=== PATIENT | female | born 1955 | race Two or more races ===

== ENCOUNTER → 2018-07-07 | Outpatient (CLI) | payer MEDICAID | END | disposition home or self-care (01) | LOC: Rad HDHVI 07:57 | PROVIDERS: ATTEND Internal Medicine | DX: I07.1 Rheumatic tricuspid insufficiency (principal); I10 Essential (primary) hypertension; E11.9 Type 2 diabetes mellitus without complications | CPT/HCPCS: 93306 ==

== ENCOUNTER → 2018-07-09 | Outpatient (CLI) | payer MEDICAID ==
[~2018-07-09] MED LIST: ADENOSINE 75 MG in GIVE UN-DILUTED 0 ML IV ONE; ADENOSINE 90 MG/30 ML INJ IV ONE
== END | disposition home or self-care (01) ==
LOC: Rad HDHVI 07:52
PROVIDERS: ATTEND Internal Medicine Cardiovascular Disease
DX: I10 Essential (primary) hypertension (principal); E11.9 Type 2 diabetes mellitus without complications; K21.9 Gastro-esophageal reflux disease without esophagitis; F32.9 Major depressive disorder, single episode, unspecified; E78.5 Hyperlipidemia, unspecified; E55.9 Vitamin D deficiency, unspecified
CPT/HCPCS: 78452; 93005; 96374; 96375; A9500; J0153

== ENCOUNTER 2018-10-27 13:57 | Emergency (ER) | payer MEDICAID ==
[~2018-10-27] VITALS: Ht 154.9 cm; Wt 89.8 kg
[2018-10-27] MEDS ORDERED: ETOMIDATE (2MG/ML) 20ML VIAL IV ONE (15:15)
[2018-10-27 16:39] VITALS: BP 127/77
== END 2018-10-27 18:35 | disposition home or self-care (01) ==
LOC: ER 13:57
DX: S53.114A Anterior dislocation of right ulnohumeral joint, initial encounter (principal); I48.91 Unspecified atrial fibrillation; E11.9 Type 2 diabetes mellitus without complications; I10 Essential (primary) hypertension; E07.9 Disorder of thyroid, unspecified; W18.39XA Other fall on same level, initial encounter; Y93.89 Activity, other specified; Y99.8 Other external cause status; Y92.89 Other specified places as the place of occurrence of the external cause
CPT/HCPCS: 24600; 73070; 73080; 94761

== ENCOUNTER → 2020-02-29 | Outpatient (CLI) | payer MEDICAID ==
[~2020-02-29] MED LIST changes: -ADENOSINE 75 MG in GIVE UN-DILUTED 0 ML IV ONE; -ADENOSINE 90 MG/30 ML INJ IV ONE; +ASPI-492 PO; +CARV6.25 PO; +CHOL10009 PO; +DAPA1TAB4 PO; +DULA0.5I SC; +FENO134C PO; +FLUT50SP28; +GLIP5TAB12 PO; +HCTZ25T PO; +LEVO150T68 PO; +LOSA-39 PO; +PANT40TA2 PO; +SERT-274 PO; +SERT-377 PO
== END | disposition home or self-care (01) ==
LOC: Rad HDHVI 08:57
PROVIDERS: ATTEND Internal Medicine
DX: I07.1 Rheumatic tricuspid insufficiency (principal); I11.0 Hypertensive heart disease with heart failure; I50.9 Heart failure, unspecified; R07.9 Chest pain, unspecified
CPT/HCPCS: 93306

== ENCOUNTER → 2020-03-02 | Outpatient (CLI) | payer MEDICAID ==
[~2020-03-02] VITALS: Ht 157.5 cm; Wt 83.0 kg
[~2020-03-02] MED LIST changes: +ADENOSINE 70 MG in GIVE UN-DILUTED 0 ML IV ONE; +ADENOSINE 90 MG/30 ML INJ IV ONE; -ASPI-492 PO; -CARV6.25 PO; -CHOL10009 PO; -DAPA1TAB4 PO; -DULA0.5I SC; -FENO134C PO; -FLUT50SP28; -GLIP5TAB12 PO; -HCTZ25T PO; -LEVO150T68 PO; -LOSA-39 PO; -PANT40TA2 PO; -SERT-274 PO; -SERT-377 PO
== END | disposition home or self-care (01) ==
LOC: Rad HDHVI 09:27
PROVIDERS: ATTEND Internal Medicine
DX: E11.9 Type 2 diabetes mellitus without complications (principal); I10 Essential (primary) hypertension; E78.00 Pure hypercholesterolemia, unspecified
CPT/HCPCS: 78452; 93005; 96374; 96375; A9500; J0153

== ENCOUNTER → 2020-04-15 | Outpatient (CLI) | payer MEDICAID ==
[~2020-04-15] VITALS: Ht 157.5 cm; Wt 87.5 kg
[~2020-04-15] MED LIST changes: -ADENOSINE 70 MG in GIVE UN-DILUTED 0 ML IV ONE; -ADENOSINE 90 MG/30 ML INJ IV ONE; +ASPI-492 PO; +CARV6.25 PO; +CHOL10009 PO; +DAPA1TAB4 PO; +DULA0.5I SC; +FENO134C PO; +FLUT50SP28; +GLIP5TAB12 PO; +HCTZ25T PO; +LEVO150T68 PO; +LOSA-39 PO; +PANT40TA2 PO; +SERT-274 PO; +SERT-377 PO
[2020-04-15 11:15] VITALS: BP 128/70
--- NOTE | 2020-04-15 11:15 | NUR ---
CHF PT ARRIVED TO THE [facility] FOR PRE OP FOR C EKG, CXR, AND LABS PER MD ORDERS. A/O X4, AMBULATORY. MEÑO BILLINGS INTERPRETED PROCESS, PROCEDURES, AND DIRECTIONS. PT VERBALIZED UNDERSTANDING.
--- NOTE | 2020-04-15 11:19 | NUR ---
EKG PREFORMED BY GIORGIO MISHRA SR 79
[2020-04-15 11:35] VITALS: BP 130/80
--- NOTE | 2020-04-15 11:35 | NUR ---
Pre-Op Discharge Summary: See e-MAR for any medications given for this visit. Pre-op orders received and carried out per MD of EKG, LABS and chest xrays. Patient given a copy of EKG with instructions GIVE BY MEÑO BILLINGS (CARE MANAGEMENT SPECIALIST) to go to [facility] out patient for further follow up care. PT VERBALIZED UNDERSTANDING. NOTE EKG ADMIN BY GIORGIO MISHRA
[2020-04-15 12:07] LABS: Basophils # (auto) 0.1 10 ^3/uL (0-0.2); Basophils % (auto) 0.9 % (0.0-2.0); Eosinophils # (auto) 0.1 10 ^3/uL (0-0.8); Eosinophils % (auto) 1.6 % (0.0-7.0); Hemoglobin 13.7 g/dL (12.2-16.2); Lymphocytes # (auto) 2.2 10 ^3/uL (0.4-5.4); Lymphocytes % (auto) 39.4 % (10.0-50.0); Mean Corpuscular Hemoglobin 29.8 pg (28.0-32.0); Mean Corpuscular Hgb Conc. 33.4 g/dL (32.0-36.0); Monocytes # (auto) 0.3 10 ^3/uL (0-1.3); Monocytes % (auto) 4.7 % (0.0-12.0); Neutrophils % (auto) 53.4 % (37.0-80.0); Nucleated Red Blood Cells % 0.3 %; Platelet Count (auto) 221 10^3/uL (140-450); Red Blood Cells 4.61 10^6/uL (4.0-5.20); Red Cell Distribution Width 14.7 % (11.8-14.3); White Blood Cell 5.5 10^3/uL (4.4-10.8)
[2020-04-15 12:10] LABS: INR 1.07 (0.9-1.15); Partial Thromboplastin Time 26.6 sec (23.64-32.05)
[2020-04-15 12:11] LABS: BUN/Creatinine Ratio 19.3; Calcium 8.8 mg/dL (8.5-10.1); Potassium 3.7 mmol/L (3.5-5.1)
== END | disposition home or self-care (01) ==
LOC: Rad HDHVI 10:43
PROVIDERS: ATTEND Internal Medicine
DX: Z01.818 Encounter for other preprocedural examination (principal); R07.9 Chest pain, unspecified; I10 Essential (primary) hypertension; E11.9 Type 2 diabetes mellitus without complications; E03.9 Hypothyroidism, unspecified; M47.819 Spondylosis without myelopathy or radiculopathy, site unspecified
CPT/HCPCS: 36415; 71046; 80048; 85025; 85610; 85730; 93005; G0463

== ENCOUNTER 2020-04-20 06:57 | Day surgery (SDC) | payer MEDICAID ==
[~2020-04-20] VITALS: Ht 30.5 cm; Wt 0.5 kg
[2020-04-20] MEDS ORDERED: IODIXANOL 320MG/ML 100ML BTL IV ONE (07:14)
[2020-04-20] MEDS ORDERED: LIDOCAINE 2%HCL (LOCAL ANESTH.) INJ 20ML MDV ONE (07:14)
[2020-04-20] MEDS ORDERED: ANGIOMAX 250 MG VIAL IV ONE (08:05)
[2020-04-20] MEDS ORDERED: fentaNYL CITRATE 100 MCG/2 ML VL ONE (08:05)
[2020-04-20] MEDS ORDERED: HEPARIN SODIUM (PORCINE) 5000 UNITS/ML 1ML VIAL ONE (08:05)
[2020-04-20] MEDS ORDERED: VERAPAMIL 2.5MG/ML INJ 2ML VIAL IV ONE (08:05)
[2020-04-20] MEDS ORDERED: SODIUM CHL 0.9% 0 ML ONE (08:06)
[2020-04-20] MEDS ORDERED: MIDAZOLAM HCL 1MG/1ML-2 ML VIAL ONE (08:06)
[2020-04-20] MEDS ORDERED: HYDROcodone-ACET 5/325MG TAB PO PRN (10:15)
[2020-04-20] MEDS ORDERED: ONDANSETRON HCL 4 MG/2 ML VIAL IV PRN (10:15)
[2020-04-20] MEDS ORDERED: ACETAMINOPHEN 500 MG TAB PO PRN (10:15)
== END 2020-04-20 12:31 | disposition home or self-care (01) ==
LOC: CATH 06:57
PROVIDERS: ATTEND Internal Medicine
DX: R94.39 Abnormal result of other cardiovascular function study (principal); I10 Essential (primary) hypertension; E78.00 Pure hypercholesterolemia, unspecified; E78.5 Hyperlipidemia, unspecified; E11.9 Type 2 diabetes mellitus without complications; Z79.82 Long term (current) use of aspirin; Z79.899 Other long term (current) drug therapy; Z98.890 Other specified postprocedural states; Z11.59 Encounter for screening for other viral diseases
CPT/HCPCS: 93458; C1769; C1887; C1894; J1644; J2250; J3010; J7030; Q9967; U0003; 99152

== ENCOUNTER → 2021-03-24 | Outpatient (CLI) | payer MEDICAID ==
[~2021-03-24] MED LIST changes: -HCTZ25T PO; +HYDR25TA5 PO; +LEV150T PO; -LEVO150T68 PO; -SERT-274 PO; +SERT50TA19 PO
== END | disposition home or self-care (01) ==
LOC: Rad HDHVI 08:53
PROVIDERS: ATTEND Internal Medicine
DX: I10 Essential (primary) hypertension (principal); E78.5 Hyperlipidemia, unspecified
CPT/HCPCS: 93880

== ENCOUNTER → 2023-03-29 | Outpatient (CLI) | payer MEDICAID | END | disposition home or self-care (01) | LOC: Rad HDHVI 08:02 | PROVIDERS: ATTEND Internal Medicine Cardiovascular Disease | DX: I10 Essential (primary) hypertension (principal); R00.2 Palpitations | CPT/HCPCS: 93306 ==

== ENCOUNTER → 2023-04-26 | Outpatient (CLI) | payer MEDICAID ==
[~2023-04-26] VITALS: Ht 152.4 cm; Wt 89.8 kg
[~2023-04-26] MED LIST changes: +ADENOSINE 75 MG in GIVE UN-DILUTED 0 ML IV ONE; +ADENOSINE 90 MG/30 ML INJ IV ONE; -FENO134C PO; +FENO134C19 PO; -LOSA-39 PO; +LOSA100T58 PO; +SERT-206 PO; -SERT50TA19 PO
== END | disposition home or self-care (01) ==
LOC: Rad HDHVI 08:33
PROVIDERS: ATTEND Internal Medicine Cardiovascular Disease
DX: I11.0 Hypertensive heart disease with heart failure (principal); I50.43 Acute on chronic combined systolic (congestive) and diastolic (congestive) heart failure; E11.40 Type 2 diabetes mellitus with diabetic neuropathy, unspecified; E78.00 Pure hypercholesterolemia, unspecified; E11.21 Type 2 diabetes mellitus with diabetic nephropathy; I11.9 Hypertensive heart disease without heart failure; E11.65 Type 2 diabetes mellitus with hyperglycemia; Z82.49 Family history of ischemic heart disease and other diseases of the circulatory system; Z72.89 Other problems related to lifestyle; Z79.899 Other long term (current) drug therapy
CPT/HCPCS: 78452; 93005; 96374; 96375; A9500; J0153

== ENCOUNTER → 2025-01-01 | Outpatient (CLI) | payer MEDICAID ==
[~2025-01-01] VITALS: Ht 154.9 cm; Wt 90.7 kg
[~2025-01-01] MED LIST changes: -ADENOSINE 75 MG in GIVE UN-DILUTED 0 ML IV ONE; +ADENOSINE 76 MG in GIVE UN-DILUTED 0 ML IV ONE; -CARV6.25 PO; +CARV6.2517 PO; -GLIP5TAB12 PO; +GLIP5TAB21 PO; +LOSA-535 PO; -LOSA100T58 PO
== END | disposition home or self-care (01) ==
LOC: Rad HDHVI 08:59
PROVIDERS: ATTEND Internal Medicine Cardiovascular Disease
DX: I11.0 Hypertensive heart disease with heart failure (principal); R42 Dizziness and giddiness; E78.00 Pure hypercholesterolemia, unspecified; I11.9 Hypertensive heart disease without heart failure; E11.65 Type 2 diabetes mellitus with hyperglycemia; U07.1 COVID-19; I50.43 Acute on chronic combined systolic (congestive) and diastolic (congestive) heart failure; I42.9 Cardiomyopathy, unspecified; R06.00 Dyspnea, unspecified; Z82.49 Family history of ischemic heart disease and other diseases of the circulatory system
CPT/HCPCS: 78452; 93005; 93017; A9500; J0153; 96374; 96375

== ENCOUNTER → 2025-01-05 | Outpatient (CLI) | payer MEDICAID ==
[~2025-01-05] MED LIST changes: -ADENOSINE 76 MG in GIVE UN-DILUTED 0 ML IV ONE; -ADENOSINE 90 MG/30 ML INJ IV ONE
--- NOTE | 2025-01-05 15:50 | DVHSR ---
APPROVED REPORT EXAM: Two-dimensional and M-mode echocardiogram with Doppler and color Doppler. DIMENSIONS LVDd4.1 (3.8-5.7cm)LA (2D)3.4 (1.9-4.0cm)Aortic Root3.2 (2.0-3.7cm) LVDs2.8 (2.5-4.0cm)LA (MM) (1.9-4.0cm)Aortic Cusp Exc1.7 (1.5-2.0cm) EF (%) 58.5 (55-70%)Rt. Atrium3.9 (1.9-4.0cm)Asc. Aorta cm IVSd1.0 (0.7-1.1cm)RV (D)3.9 (1.8-2.4cm) PWd1.1 (0.7-1.1cm) Mitral Valve MitralMitral Stenosis E wave0.84m/sMV Mean GR.mmHg A wave0.97m/sMV Peak GR.mmHg E/A ratio0.92D MVAcm2 DECEL [id number] 1/2 [place] Aortic Valve Aortic ValveAortic Stenosis V11.06m/Gu[place]upe Mean GR.3mmHg V21.27m/Gu[place]upe Peak GR.6mmHg Pulmonic Valve V20.77m/s Tricuspid Valve TR Velocity1.78m/s [id number] LEFT VENTRICLE The Ejection Fraction is >55%. ATRIA The left atrial size is normal. The right atrium size is normal. MITRAL VALVE The mitral valve is normal in structure and function. There is no mitral valve regurgitation noted. PULMONIC VALVE The pulmonic valve is not well visualized. TRICUSPID VALVE The tricuspid valve is grossly normal. There is trace tricuspid regurgitation. AORTIC VALVE The aortic valve opens well. No aortic regurgitation is present. GREAT VESSELS The aortic root is normal size. PERICARDIAL EFFUSION There is no pericardial effusion. Conclusion EF >55%
== END | disposition home or self-care (01) ==
LOC: Rad HDHVI 10:02
PROVIDERS: ATTEND Internal Medicine Cardiovascular Disease
DX: R07.9 Chest pain, unspecified (principal)
CPT/HCPCS: 93306

== ENCOUNTER → 2025-01-11 | Outpatient (CLI) | payer MEDICAID | END | disposition home or self-care (01) | LOC: Rad HDHVI 09:52 | PROVIDERS: ATTEND Internal Medicine Cardiovascular Disease | DX: I10 Essential (primary) hypertension (principal) | CPT/HCPCS: 93880 ==